=== PATIENT | male | born 1960 | race Caucasian/White ===

== ENCOUNTER 2020-07-15 04:28 | Day surgery (SDC) | payer BC ==
[2020-07-09 13:36] VITALS: BMI 24.2
[2020-07-15 11:18] VITALS: TEMP 98
[2020-07-15 12:22] VITALS: BP 106/70; PULSE 59
== END 2020-07-15 12:00 | disposition home or self-care (01) ==
LOC: JASU-ENDO 04:28
PROVIDERS: ATTEND Internal Medicine Gastroenterology
PROC: 0DB68ZX Excision of Stomach, Via Natural or Artificial Opening Endoscopic, Diagnostic (ICD-10-PCS; principal; 2020-07-15 10:30)
DX: K29.50 Unspecified chronic gastritis without bleeding (principal)
CPT/HCPCS: 36415; 82941; 83516; 88305-TC; 88342-TC

== ENCOUNTER 2020-08-05 04:45 | Day surgery (SDC) | payer BC, OTHER ==
[2020-08-05 09:27] LABS: HEMATOCRIT 43.4 % (35.4-49); HEMOGLOBIN 14.5 GM/dL (11.7-16.9); MCH 28.9 pg (25.7-33.7); MCHC 33.4 g/dl (32.0-35.9); MEAN CELL VOLUME 86.4 fl (80-96); MEAN PLT VOLUME 8.2 fl (7.5-11.1); PLATELET COUNT 406 K/MM3 (134-434); RBC 5.02 M/mm3 (4.00-5.60); RDW 13.3 % (11.9-15.9); WHITE BLOOD COUNT 8.4 K/mm3 (4.0-10.0)
[2020-08-05 09:35] VITALS: BMI 23.1
[2020-08-05 10:22] VITALS: TEMP 98.3
[2020-08-05 11:46] VITALS: BP 114/82; PULSE 61
[2020-08-05 12:21] LABS: INR 1.16 (0.83-1.09)
== END 2020-08-05 11:40 | disposition home or self-care (01) ==
LOC: JASU-ENDO 04:45
PROVIDERS: ATTEND Internal Medicine Gastroenterology
PROC: 3E0H8KZ Introduction of Other Diagnostic Substance into Lower GI, Via Natural or Artificial Opening Endoscopic (ICD-10-PCS; 2020-08-05)
PROC: 0DBM8ZX Excision of Descending Colon, Via Natural or Artificial Opening Endoscopic, Diagnostic (ICD-10-PCS; principal; 2020-08-05 11:00)
DX: C18.6 Malignant neoplasm of descending colon (principal); K57.30 Diverticulosis of large intestine without perforation or abscess without bleeding; K63.89 Other specified diseases of intestine; K64.8 Other hemorrhoids
CPT/HCPCS: 36415; 82378; 85027; 85610; 85730; 88305-TC